=== PATIENT | female | born 1990 | race Two or more races ===

== ENCOUNTER 2024-07-22 05:56 | Day surgery (SDC) | payer OTHER ==
[2024-07-22] MEDS ORDERED: DIPHENHYDRAMINE HCL 50 MG/ML VIAL 1ML IV ONE (09:00)
[2024-07-22] MEDS ORDERED: MEPERIDINE HCL/PF 50 MG/ML VIAL IV ONE (09:00)
[2024-07-22] MEDS ORDERED: MIDAZOLAM HCL/PF 5 MG/ML VIAL IV ONE (09:00)
== END 2024-07-22 10:45 | disposition home or self-care (01) ==
LOC: AMB-ENDOS 05:56 → CIR.AMB 07-28 14:45
PROVIDERS: ATTEND Surgery
DX: K29.80 Duodenitis without bleeding (principal); R10.13 Epigastric pain; E66.09 Other obesity due to excess calories; K44.9 Diaphragmatic hernia without obstruction or gangrene; K29.00 Acute gastritis without bleeding